=== PATIENT | female | born 1980 | race Caucasian/White ===

== ENCOUNTER 2016-09-17 23:33 | Emergency (ER) | payer OTHER, MEDICAID ==
[~2016-09-17] VITALS: Ht 177.8 cm; Wt 109.0 kg
[~2016-09-17 23:33] MED LIST: CIPR500T4 PO; LORTA5 PO
[2016-09-17 23:34] VITALS: BP 141/89; PULSE 82; RESP 16; TEMP 98.6; O2SAT 96
[2016-09-18] MEDS ORDERED: HYDR-3533 PO (00:53)
[2016-09-18] MEDS ORDERED: DICL75TA PO (00:53)
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
[2016-09-18] MEDS ORDERED: IBUPROFEN 800 MG TAB PO ONE (01:15)
== END 2016-09-18 01:20 | disposition home or self-care (01) ==
LOC: NEPD 23:33
DX: S43.402A Unspecified sprain of left shoulder joint, initial encounter (principal); S43.401A Unspecified sprain of right shoulder joint, initial encounter; F41.9 Anxiety disorder, unspecified; F17.210 Nicotine dependence, cigarettes, uncomplicated; Z79.899 Other long term (current) drug therapy; Z88.0 Allergy status to penicillin; Z88.1 Allergy status to other antibiotic agents; Z88.8 Allergy status to other drugs, medicaments and biological substances; Y04.8XXA Assault by other bodily force, initial encounter
CPT/HCPCS: 73030; 99284

== ENCOUNTER 2017-02-22 08:49 | Emergency (ER) | payer MEDICAID, OTHER ==
[~2017-02-22] VITALS: Ht 180.3 cm; Wt 100.0 kg
[2017-02-22 08:49] VITALS: BP 138/78; PULSE 94; RESP 18; TEMP 98.5; O2SAT 98
[~2017-02-22 08:49] MED LIST changes: -CIPR500T4 PO; +DICL75TA PO; +HYDR-3533 PO; -LORTA5 PO
[2017-02-22] MEDS ORDERED: CLINDAMYCIN PHOS 600 MG/4 ML VIAL IM ONE (09:15)
[2017-02-22] MEDS ORDERED: IBUP-232 PO (09:17)
[2017-02-22] MEDS ORDERED: CLIN150C14 PO (09:17)
--- NOTE | 2017-02-22 09:17 | PD ---
HPI Chief Complaint: Oral / Dental Pain or Problem Time Seen by Provider: 09:09 Travel History International Travel<30 days: No Contact w/Intl Traveler<30days: No Traveled to known affect area: No History of Present Illness HPI 36-year-old female complains of pain and swelling of left side of the jaw. Patient states that she has dental pain for the past several days. Patient started having swelling left side of face today. Patient states that she has history of dental abscess in the past. Patient has not seen a dentist. Patient denies any fever chills. Patient denies any problem with swallowing. PFSH Past Medical History Anxiety: Yes Diminished Hearing: No Headaches: Yes Pneumonia: Yes ?: Not LMP: 02/05/17 : 1 Para: 1 Social History Alcohol Use: Yes (socially) Tobacco Use: Yes (10 CIGARETTES PER DAY) Substance Use: No Allergies-Medications (Allergen,Severity, Reaction): Coded Allergies: amoxicillin (Unverified Allergy, Severe, Rash, 02/22/17) erythromycin base (Unverified Allergy, Severe, RASH, 02/22/17) azithromycin (Unverified Allergy, Mild, Rash, 02/22/17) cephalexin (Unverified Allergy, Mild, RASH, 02/22/17) penicillin G (Unverified Allergy, Mild, Rash, 02/22/17) sulfamethoxazole (Unverified Allergy, Mild, RASH, 02/22/17) trimethoprim (Unverified Allergy, Mild, RASH, 02/22/17) Reported Meds & Prescriptions Reported Meds & Active Scripts Active No Active Prescriptions or Reported Medications Review of Systems General / Constitutional: No: Fever Eyes: No: Visual changes HENT: No: Headaches Cardiovascular: No: Chest Pain or Discomfort Respiratory: No: Shortness of Breath Gastrointestinal: No: Abdominal Pain Genitourinary: No: Dysuria Musculoskeletal: No: Pain Skin: No Rash Neurologic: No: Weakness Psychiatric: No: Depression Endocrine: No: Polydipsia Hematologic/Lymphatic: No: Easy Bruising Physical Exam Narrative GENERAL: Well-nourished, well-developed patient. SKIN: Focused skin assessment warm/dry. HEAD: Normocephalic. EYES: No scleral icterus. No injection or drainage. Patient has soft tissue swelling with tenderness left side of the mandible. Severe dental caries noted left lower gum area. NECK: Supple, trachea midline. No JVD or lymphadenopathy. CARDIOVASCULAR: Regular rate and rhythm without murmurs, gallops, or rubs. RESPIRATORY: Breath sounds equal bilaterally. No accessory muscle use. GASTROINTESTINAL: Abdomen soft, non-tender, nondistended. MUSCULOSKELETAL: No cyanosis, or edema. BACK: Nontender without obvious deformity. No CVA tenderness. Data Data Last Documented VS Vital Signs Date Time Temp Pulse Resp B/P (MAP) Pulse Ox O2 Delivery O2 Flow Rate FiO2 02/22/17 08:49 98.5 94 18 138/78 (98) 98 Orders Orders Clindamycin Inj (Cleocin Inj) (02/22/17 09:15) [facility] Medical Decision Making Medical Screen Exam Complete: Yes Emergency Medical Condition: Yes Differential Diagnosis Differential diagnosis including dental abscess, cellulitis. Narrative Course 36-year-old female with pain swelling left jaw. Typical of dental abscess. Clindamycin 600 mg IM. Diagnosis Primary Impression: Dental abscess Patient Instructions: General Instructions Additional Instructions: Clindamycin as directed. Follow-up with a dentist. Return if worse. Med/Other Pt SpecificInfo: Prescription(s) given Scripts Ibuprofen (Ibuprofen) 600 Mg Tab 600 MG PO TID for Pain, #60 TAB 0 Refills Prov: Adrian Mendez MD 02/22/17 Clindamycin (Clindamycin) 150 Mg Cap 300 MG PO Q6H for Infection, #80 CAP 0 Refills Prov: Adrian Mendez MD 02/22/17 Disposition: 01 DISCHARGE HOME Condition: Stable Adrian Mendez MD Feb 22, 2017 09:17
== END 2017-02-22 10:21 | disposition home or self-care (01) ==
LOC: NEPD 08:49
DX: K04.7 Periapical abscess without sinus (principal); F41.9 Anxiety disorder, unspecified; F17.210 Nicotine dependence, cigarettes, uncomplicated; Z88.0 Allergy status to penicillin; Z88.2 Allergy status to sulfonamides; Z88.8 Allergy status to other drugs, medicaments and biological substances
CPT/HCPCS: 96372

== ENCOUNTER 2017-08-05 10:32 | Emergency (ER) | payer MEDICAID ==
[~2017-08-05] VITALS: Ht 180.3 cm; Wt 92.0 kg
[~2017-08-05 10:32] MED LIST changes: +CLIN150C14 PO; -DICL75TA PO; -HYDR-3533 PO; +IBUP-232 PO
[2017-08-05 10:52] VITALS: BP 120/76; PULSE 77; RESP 16; TEMP 97.4; O2SAT 97
--- NOTE | 2017-08-05 11:47 | PD ---
HPI Chief Complaint: Oral / Dental Pain or Problem Time Seen by Provider: 11:16 Travel History International Travel<30 days: No Contact w/Intl Traveler<30days: No Traveled to known affect area: No History of Present Illness HPI 36-year-old female presents to the ED for evaluation of 1 week history of right lower jaw dental pain. Gradual onset. Pain is throbbing, 8/10, shoots towards the ear. Patient endorses a cavity in the area. She denies fever, chills, nausea, vomiting, sore throat, difficulty swallowing. She states that she does not have a dentist. Treated at home with 400 mg of ibuprofen with no improvement of symptoms. PFSH Past Medical History Anxiety: Yes Diminished Hearing: No Headaches: Yes Pneumonia: Yes : 1 Para: 1 Social History Alcohol Use: Yes (socially) Tobacco Use: Yes (10 CIGARETTES PER DAY) Substance Use: No Allergies-Medications (Allergen,Severity, Reaction): Coded Allergies: amoxicillin (Unverified Allergy, Severe, Rash, 08/05/17) erythromycin base (Unverified Allergy, Severe, RASH, 08/05/17) azithromycin (Unverified Allergy, Mild, Rash, 08/05/17) cephalexin (Unverified Allergy, Mild, RASH, 08/05/17) penicillin G (Unverified Allergy, Mild, Rash, 08/05/17) sulfamethoxazole (Unverified Allergy, Mild, RASH, 08/05/17) trimethoprim (Unverified Allergy, Mild, RASH, 08/05/17) Reported Meds & Prescriptions Reported Meds & Active Scripts Active Ibuprofen 800 Mg Tab 800 Mg PO Q8H PRN Clindamycin (Clindamycin HCl) 150 Mg Cap 450 Mg PO Q8HR 7 Days Ibuprofen 600 Mg Tab 600 Mg PO TID Clindamycin (Clindamycin HCl) 150 Mg Cap 300 Mg PO Q6H Review of Systems Except as stated in HPI: all other systems reviewed are Neg Physical Exam Narrative GENERAL: Well-nourished, well-developed white female in NAD. SKIN: Warm and dry. HEAD: Normocephalic. Atraumatic. EYES: No scleral icterus. No injection or drainage. PERRLA. EOMI. ENT: Pearly mathais tympanic membranes bilaterally. Nasal mucosa is moist. Oropharynx without erythema, edema or exudate. DENTAL: No loose or chipped teeth. No malocclusion. Cavity in tooth 31. TTP of tooth 31 and surrounding mucosa. No drainable abscess. NECK: Supple, trachea midline. No JVD or lymphadenopathy. CARDIOVASCULAR: Regular rate and rhythm without murmurs, gallops, or rubs. No carotid bruits. 2+ DP and radial pulses bilaterally. RESPIRATORY: Breath sounds clear and equal bilaterally. No accessory muscle use. GASTROINTESTINAL: Abdomen soft, non-tender, nondistended. + Bowel sounds MUSCULOSKELETAL: No cyanosis, or edema. Full, active range of motion. Strength 5/5. Neurovascularly intact. BACK: Nontender without obvious deformity. No CVA tenderness. Data Data Last Documented VS Vital Signs Date Time Temp Pulse Resp B/P (MAP) Pulse Ox O2 Delivery O2 Flow Rate FiO2 08/05/17 10:52 97.4 77 16 120/76 (91) 97 Orders Orders Ed Discharge Order (08/05/17 11:48) [facility] Medical Decision Making Medical Screen Exam Complete: Yes Emergency Medical Condition: Yes Differential Diagnosis Dental abscess versus dental impaction versus dental caries versus dental fracture versus other Narrative Course 36-year-old female presents to the ED for evaluation of 1 week history of right lower jaw dental pain. Patient endorses a cavity in the area. She denies fever , chills, nausea, vomiting, sore throat, difficulty swallowing. Patient does not have a dentist. Vitals reviewed. On exam there is a cavity in tooth 31 and the surrounding mucosa is tender. Exam otherwise unremarkable. Patient is prescribed for 50 clindamycin 3 times daily 3 days and a short course of anti- inflammatories. She is instructed to take every antibiotic pill until they are all gone, follow with the dentist. She is provided dental resources. She indicated understanding of the instructions and is agreeable to the care plan. She is stable and discharged home. Diagnosis Primary Impression: Pain, dental Additional Impression: Dental caries Referrals: Dentist Additional Instructions: Rest, hydrate. Begin antibiotics today and take them until every pill is gone. 800 mg ibuprofen up to 3 times a day as prescribed. Warm salt water gargles may also help to improve your pain symptoms. Follow-up with the dentist. Return to the ED for any urgent or emergent medical condition. Med/Other Pt SpecificInfo: Prescription(s) given Scripts Ibuprofen (Ibuprofen) 800 Mg Tab 800 MG PO Q8H Y for Pain/Inflammation, #18 TAB 0 Refills Prov: Gamal Goodwin MD 08/05/17 Clindamycin (Clindamycin) 150 Mg Cap 450 MG PO Q8HR for Infection for 7 Days, CAP 0 Refills Prov: Gamal Goodwin MD 08/05/17 Disposition: 01 DISCHARGE HOME Condition: Stable Radha Coronel August 05, 2017 11:47
[2017-08-05] MEDS ORDERED: CLIN150C14 PO (11:48)
[2017-08-05] MEDS ORDERED: IBUP1TAB7 PO (11:48)
== END 2017-08-05 12:05 | disposition home or self-care (01) ==
LOC: NEPK 10:32
DX: K08.89 Other specified disorders of teeth and supporting structures (principal); K02.9 Dental caries, unspecified; F17.210 Nicotine dependence, cigarettes, uncomplicated
CPT/HCPCS: 99283

== ENCOUNTER 2017-09-01 04:16 | Emergency (ER) | payer MEDICAID ==
[~2017-09-01] VITALS: Ht 162.6 cm; Wt 68.0 kg
[~2017-09-01 04:16] MED LIST changes: +IBUP1TAB7 PO
[2017-09-01 04:44] VITALS: BP 139/90; PULSE 78; RESP 16; TEMP 97.7; O2SAT 99
== END 2017-09-01 05:47 | disposition left against medical advice (07) ==
LOC: NED 04:16
DX: Z53.21 Procedure and treatment not carried out due to patient leaving prior to being seen by health care provider (principal)
CPT/HCPCS: 99281